=== PATIENT | female | born 1945 | race Two or more races ===

== ENCOUNTER 2017-06-08 19:19 | Emergency (ER) | payer MEDICARE, OTHER ==
[~2017-06-08] VITALS: Ht 162.6 cm; Wt 79.4 kg
[2017-06-08] MEDS ORDERED: Norco 5mg/325mg tab ORAL ONE (19:45)
[2017-06-08] MEDS ORDERED: NORCO 5-325 TA1 EAC1 ORAL (20:10)
[2017-06-08 20:26] VITALS: BP 130/80
--- NOTE | 2017-06-08 21:00 | Emergency Room Report ---
History of Present Illness General Chief Complaint: Lower Extremity Injury Source: Patient Present Illness HPI The patient is a 71-year-old female presenting for right knee pain. She states that she fell earlier this morning after she lost balance. She states that she landed on her knee and denies hitting any other part of her body she denies loss of consciousness. Pain has continued and is now a 6/10 dull ache. Does not radiate from the right knee. Worse with movement. She denies previous injury to the knee. She denies any numbness or tingling. She states that she takes blood thinners and has noticed swelling around the knee. She denies other symptoms Allergies: Coded Allergies: No Known Allergies (Unverified , 06/08/17) Patient History Past Medical History: see triage record Pertinent Family History: none Now: No Reviewed Nursing Documentation: PMH: Agreed, PSxH: Agreed Nursing Documentation-PMH Hx Hypertension: Yes Review of Systems All Other Systems: negative except mentioned in HPI Physical Exam Vital Signs Date Time Temp Pulse Resp B/P (MAP) Pulse Ox O2 Delivery O2 Flow Rate FiO2 06/08/17 19:26 98.1 92 16 130/80 98 Room Air Sp02 EP Interpretation: reviewed, normal General Appearance: no apparent distress, alert, GCS 15, non-toxic Head: normocephalic, atraumatic Eyes: bilateral eye normal inspection, bilateral eye PERRL ENT: hearing grossly normal, normal pharynx, no angioedema, normal voice Musculoskeletal: normal range of motion, swelling - R knee, tender - TTP Over R anerior knee Neurologic: alert, oriented x3, responsive, motor strength/tone normal, sensory intact, speech normal Psychiatric: judgement/insight normal, memory normal, mood/affect normal, no suicidal/homicidal ideation Skin: other - ecchymosis R anterior knee Lymphatic: no adenopathy Procedures Splinting Splinting : Consent: Verbal Location: R knee Pre-Made Type: DAMIAN wrap Pre-Proc Neuro Vasc Exam: normal Post-Proc Neuro Vasc Exam: normal Patient Tolerated: Well Complications: None Medical Decision Making PA Attestation Dr. Cole is my supervising physician. Patient management was discussed with my supervising physician Diagnostic Impression: Primary Impression: Contusion of knee, right Qualified Codes: S80.01XA - Contusion of right knee, initial encounter ER Course The patient is a 71-year-old female presenting for right knee pain Ddx considered include but not limited to sprain/strain, fracture, contusion, hemarthrosis, among others PE: NAD There is tenderness to palpation over the right anterior knee as well as soft tissue swelling. Is also ecchymosis to this region. Full active range of motion. Patient walks with antalgic gait DP pulse 2+ X-ray of the right knee reveals no fracture. There is a small joint effusion. Moderate degenerative changes. Soft tissue swelling. Damian wrap is placed over the right knee and the patient is given pain medication. She'll follow up with her primary doctor. Rice instructions given. ER precautions given Other X-Ray Diagnostic Results Other X-Ray Diagnostic Results : X-Ray ordered: R knee # of Views/Limited Vs Complete: 3 View Indication: Pain EP Interpretation: Yes Interpretation: no dislocation, no fractures, other - + STS Impression: Other - STS Interpreting ER Provider: Kendall Cole MD PA Scribe Text I am acting as scribe for my supervising physician. My supervising physician's interpretation of the R knee xrays are there are no fractures. There is a small joint effusion. Moderate degenerative changes. Soft tissue swelling. Last Vital Signs Date Time Temp Pulse Resp B/P (MAP) Pulse Ox O2 Delivery O2 Flow Rate FiO2 06/08/17 20:26 98.1 16 130/80 98 Room Air 06/08/17 19:26 92 Status: improved Disposition: HOME, SELF-CARE Condition: Improved Scripts Hydrocodone Bit/Acetaminophen 5-325* (NORCO 5-325 TABLET*) 1 Each Tablet 1 TAB ORAL Q6HR Y for For Pain, #12 TAB Prov: AZIZA FELIX 06/08/17 Patient Instructions: Knee Pain, RICE for Routine Care of Injuries Additional Instructions: I discussed my findings with the patient. All questions and concerns have been answered. Treatment and medication compliance have been addressed. I advised the patient that they need to follow up with PMD in 3-5 days. Return to ED if pain remains or worsens, numbness or tingling occurs, new rash is noticed, fever is noticed, or if needed for any reason. Patient verbalized understanding of discharge instructions. AZIZA FELIX Jun 08, 2017 21:00
--- NOTE | 2017-06-10 09:02 | Diagnostic Imaging Report ---
Indication: PAIN Technique: 3 views of the right knee Comparison: None Findings:No acute fractures. No dislocations. Equivocal small suprapatellar effusion. Minimal degenerative proliferative changes are noted. The joint spaces are preserved. There is slight prepatellar soft tissue swelling Impression:No acute bony trauma Equivocal small effusion Mild prepatellar soft tissue swelling This agrees with the preliminary interpretation provided overnight by [facility]iology service.
== END 2017-06-08 20:26 | disposition home or self-care (01) ==
LOC: EMR 19:55
DX: S80.01XA Contusion of right knee, initial encounter (principal); W19.XXXA Unspecified fall, initial encounter; Y93.9 Activity, unspecified; Y99.9 Unspecified external cause status; I10 Essential (primary) hypertension; M25.561 Pain in right knee
CPT/HCPCS: 29530; 99283